=== PATIENT | female | born 1955 | race Caucasian/White ===

== ENCOUNTER 2020-12-22 14:07 | Emergency (ER) | payer MEDICAID, SELFPAY ==
--- NOTE | 2020-12-22 14:15 | ED.GENADULT ---
HPI - General Adult General Chief complaint: Eye Problems Stated complaint: eye swelling/redness Time Seen by Provider: 12/22/20 14:40 Source: patient and RN notes reviewed Mode of arrival: ambulatory Limitations: no limitations History of Present Illness HPI narrative: 65-year-old female presents concern for right eye redness, eyelid swelling, irritation. Reports symptoms started yesterday. She denies injury to the eye. Denies purulent drainage. She denies wearing contact lenses nor getting foreign body in her eye. She denies upper respiratory symptoms. She denies vision changes, light sensitivity. Reports she used artificial teardrops without relief complaint: Eye redness Related Data Home Medications Medication Instructions Recorded Confirmed sertraline 12/22/20 Allergies Allergy/AdvReac Type Severity Reaction Status Date / Time Sulfa (Sulfonamide AdvReac Nausea Verified 12/22/20 14:23 Antibiotics) Review of Systems Review of Systems: CONSTITUTIONAL: Denies malaise, chills, sweats, or fever. EYES: Denies visual changes or discharge. Reports right eye irritation, redness, eyelid swelling ENT: Denies rhinorrhea, congestion, sinus pain, otalgia or sore throat. SKIN: Denies rash or itching. MUSCULOSKELETAL: Denies myalgia. NEUROLOGIC: Denies headache. All systems reviewed & are unremarkable except as noted in HPI and below PMFSH Comments At time of signature, agree with nursing past medical, surgical, social and family history. There is no relevant family history pertinent to the presenting complaint Exam Narrative: GENERAL: Well-appearing, well-nourished, and in no acute distress. HEAD: Normocephalic, atraumatic. EYES: PERRLA, left sclera clear, and EOMI. No nystagmus. Right sclera mildly injected, conjunctive a clear, small white lesion noted at approximately 3:00 in relation to the pupil, mild upper and lower eyelid superficial edema ENT: Nares clear, turbinates pink, no rhinorrhea or epistaxis. Mucous membranes moist. TM pearly mayen with sharp light reflex bilaterally; no tragal tenderness. NECK: Supple. CHEST: No respiratory distress. Speaks in full sentences. HEART: Regular rate and rhythm. SKIN: Warm, dry, no visible rash. NEURO: Alert and oriented x3. PSYCH: Normal mood and affect Course Course Emergency Course: Patient is aware of diagnosis, understands and agrees to treatment plan. Anticipatory guidance given. Patient agrees to follow-up as directed and is aware of reasons to seek care at the emergency department. Portions of this record may have been created with voice recognition software Vital Signs Vital signs: Reviewed. Medical Decision Making MDM Narrative Medical decision making narrative: Consideration of the following conditions may be warranted for the presenting problem, they are not final diagnoses: Bacterial conjunctivitis, allergic conjunctivitis, viral conjunctivitis, foreign body, blepharitis, chalazion, hordeolum, corneal abrasion, preseptal cellulitis, orbital cellulitis. No evidence of proptosis, ophthalmoplegia, vision loss, pain with eye movement. Exam findings show no acute concerns or changes; patient is non-toxic appearing and is in no distress. Patient is appropriate for outpatient treatment and follow-up. Critical Care Time Critical Care Time Critical Care Time: No Discharge Plan Discharge Clinical Impression: Lesion of eye Patient Disposition: Home, Self-Care Condition: Stable Instructions: How to Use Eye Drops (ED) Additional Instructions: Make an appointment with ophthalmology or inside sales account executive for further evaluation of your eye. Use eyedrops as directed Do not touch or rub your eye or use a fabric patch ( pirate's patch ) You may take Tylenol or ibuprofen for pain Prescriptions: New polymyxin B sulf-trimethoprim [Polytrim] 10,000 unit- 1 mg/mL drops 1 drp EACH EYE Q4H 7 Days Qty: 10 RF: 0 No Action sertraline
[2020-12-22 14:20] VITALS: BP 111/82; PULSE 85; RESP 16; TEMP 36.9; O2SAT 100
== END 2020-12-22 15:03 | disposition home or self-care (01) ==
PROVIDERS: Emergency Provider Nurse Practitioner
DX: H57.9 Unspecified disorder of eye and adnexa (principal)
CPT/HCPCS: 99213; G0463